=== PATIENT | female | born 1975 | race Hispanic/Latino ===

== ENCOUNTER 2021-03-21 08:52 | Day surgery (SDC) | payer OTHER ==
[2021-03-21 09:28] VITALS: BMI 37.1
[2021-03-21 09:40] LABS: #Eosinphils 0.3 10x3/uL (0.0-0.5); #Monocytes 0.3 10x3/uL (0.0-1.1); #Neutrophils 2.2 10x3/uL (1.5-8.4); %Basophils 0.6 % (0.0-2.0); %Eosinophils 6.5 % (0.0-6.0); %Lymphocytes 42.8 % (18.0-47.0); %Monocytes 5.7 % (0.0-10.0); %Neutrophils 44.2 % (40.0-75.0); Hemoglobin 12.2 g/dL (12.0-15.5); Mean Corpuscular HGB CONC 33.5 g/dL (32.0-36.0); Mean Corpuscular Hemoglobin 28.4 pg (27.0-33.0); Mean Corpuscular Volume 84.7 fl (81.6-98.3); Mean Platelet Volume 10.4 fl (7.4-10.4); Platelet Count 200 10x3/uL (150-450); RBC Distribution Width 14.1 % (11.5-14.5); White Blood Cell (WBC) Count 5.1 10x3/uL (3.5-10.5)
[2021-03-21 09:45] LABS: BHCG - Serum Negative (NEGATIVE); Pregs Control Background? CLEAR/WHITE (CLR/WHITE); Pregs Control Bar Appear? YES (CONTROL BAR)
[2021-03-21 09:48] LABS: PTT 25.6 sec (22.0-33.0)
[2021-03-21 09:50] LABS: Anion Gap 13 mmol/L (10-20); BUN (Urea Nitrogen) 13 mg/dL (7.0-18.7); Calc. Creatinine Clearance 183 mL/min (70-130); Calcium 8.8 mg/dL (7.8-10.44); Carbon Dioxide 26 mmol/L (22-29); Chloride 106 mmol/L (98-107); Glucose 166 mg/dL (70-105); Potassium 4.1 mmol/L (3.5-5.1); Sodium 141 mmol/L (136-145)
[2021-03-21] MEDS ORDERED: Nitroglycerin 50 MG/250 ML BOT 250 ML ONE (09:55)
[2021-03-21] MEDS ORDERED: Heparin 10,000 UNITS/ 10 ML VIAL ONE ×2 (09:55→10:55)
[2021-03-21] MEDS ORDERED: Adenosine 6 MG/2 ML VIAL ONE (09:56)
[2021-03-21] MEDS ORDERED: Verapamil 5 MG/2 ML VIAL ONE (09:56)
[2021-03-21] MEDS ORDERED: Bivalirudin 250 MG VIAL ONE (09:56)
[2021-03-21] MEDS ORDERED: Lidocaine 1% PF 5 ML VIAL ONE (10:05)
[2021-03-21] MEDS ORDERED: Fentanyl 100 MCG/2 ML VIAL ONE (10:15)
[2021-03-21] MEDS ORDERED: Midazolam HCl 2 mg/2 ml Vial ONE ×2 (10:15→11:31)
[2021-03-21] MEDS ORDERED: Ondansetron PF 4 MG/2 ML Vial ONE (10:42)
[2021-03-21] MEDS ORDERED: Atropine Sulfate 0.4 mg/1 ml Vial ONE (10:54)
[2021-03-21] MEDS ORDERED: Clopidogrel Bisulfate 75 MG TAB ONE (13:20)
[2021-03-21] MEDS ORDERED: Acetaminophen 325 MG TAB ONE (14:12)
== END 2021-03-21 16:00 ==
LOC: CSHCCL 08:52
PROVIDERS: ATTEND Specialist
DX: I25.118 Atherosclerotic heart disease of native coronary artery with other forms of angina pectoris (principal); I11.0 Hypertensive heart disease with heart failure; I50.9 Heart failure, unspecified; I25.2 Old myocardial infarction
CPT/HCPCS: 71045; 80048; 84703; 85025; 85347; 85610; 85730; 92921; 92928; 92978; 92979; 93005; 93010; 93458; 99152; 99153; C1725; C1753; C1769; C1874; C1887; C9600; J0153; J0461; J0583; J1644; J2250; J2405; J3010